=== PATIENT | male | born 1995 | race Caucasian/White ===

== ENCOUNTER 2018-01-18 01:01 | Inpatient (IN) | payer OTHER ==
[~2018-01-18] VITALS: Ht 175.3 cm; Wt 66.2 kg
[~2018-01-18 01:01] MED LIST: PRED20 PO; Z.0.NO CURRENT MEDS
[2018-01-18 01:10] VITALS: BP 131/99; PULSE 123; RESP 18; TEMP 98.7; O2SAT 99
[2018-01-18] MEDS ORDERED: LORazepam 2 MG/ML VIAL IM ONE (01:45)
[2018-01-18] MEDS ORDERED: HALOPERIDOL LACTATE 5 MG/ML AMP IM ONE (01:45)
[2018-01-18] MEDS ORDERED: diphenhydrAMINE HCL 50 MG/ML VIAL IM ONE (01:45)
--- NOTE | 2018-01-18 01:59 | PD ---
HPI Chief Complaint: Psychiatric Symptoms Time Seen by Provider: 01:43 Travel History International Travel<30 days: No Contact w/Intl Traveler<30days: No Traveled to known affect area: No History of Present Illness HPI 22-year-old male presents emergency department under Reyna act for psychiatric evaluation. Patient does not offer any history. He denies pain. He keeps yelling that he loves us and then he becomes very agitated and angry. He has very explosive behavior here in the emergency department. Like I said he is otherwise a very poor historian offers no history to what occurred today and why he is here. He denies illicit drug use. He has no documented psychiatric history here PFSH Past Medical History ADHD: Yes Asthma: No Bipolar Disorder: No Anxiety: No Diabetes: No Hypertension: No Seizures: No Past Surgical History Surgical History: No Previous Surgery Social History Alcohol Use: No Tobacco Use: No Substance Use: Yes Allergies-Medications (Allergen,Severity, Reaction): Coded Allergies: No Known Allergies (Verified Adverse Reaction, Unknown, 01/18/18) Reported Meds & Prescriptions Reported Meds & Active Scripts Active No Active Prescriptions or Reported Medications Review of Systems ROS Limitations: Psychotic Physical Exam Exam Limitations: Psychotic Narrative GENERAL: Well-nourished male patient, with bizarre affect, labile moods, combative, with explosive behavior SKIN: Focused skin assessment warm/dry. HEAD: Atraumatic. Normocephalic. EYES: Pupils equal and round. No scleral icterus. No injection or drainage. ENT: No nasal bleeding or discharge. Mucous membranes pink and moist. NECK: Trachea midline. No JVD. CARDIOVASCULAR: Tachycardic rate and rhythm. No murmur appreciated. RESPIRATORY: No accessory muscle use. Clear to auscultation. Breath sounds equal bilaterally. GASTROINTESTINAL: Abdomen soft, non-tender, nondistended. Hepatic and splenic margins not palpable. MUSCULOSKELETAL: No obvious deformities. No clubbing. No cyanosis. No edema. NEUROLOGICAL: Awake and alert. No obvious cranial nerve deficits. Motor grossly within normal limits. Clear but bizarre speech. Data Data Last Documented VS Vital Signs Date Time Temp Pulse Resp B/P (MAP) Pulse Ox O2 Delivery O2 Flow Rate FiO2 01/18/18 01:10 98.7 123 18 131/99 (110) 99 Orders Orders Complete Blood Count With Diff (01/18/18 01:17) Comprehensive Metabolic Panel (01/18/18 01:17) Thyroid Stimulating Hormone (01/18/18 01:17) Psych Screen (01/18/18 01:17) Drug Screen, Random Urine (01/18/18 01:17) Alcohol (Ethanol) (01/18/18 01:17) Salicylates (Aspirin) (01/18/18 01:17) Tylenol (Acetaminophen) (01/18/18 01:17) Restraints Violent (01/18/18 01:44) Haloperidol Inj (Haldol Inj) (01/18/18 01:45) Lorazepam Inj (Ativan Inj) (01/18/18 01:45) Diphenhydramine Inj (Benadryl Inj) (01/18/18 01:45) Labs Laboratory Tests Test 01/18/18 01:15 White Blood Count 8.2 TH/MM3 Red Blood Count 4.90 MIL/MM3 Hemoglobin 15.2 GM/DL Hematocrit 43.3 % Mean Corpuscular Volume 88.3 FL Mean Corpuscular Hemoglobin 31.1 PG Mean Corpuscular Hemoglobin Concent 35.2 % Red Cell Distribution Width 12.5 % Platelet Count 319 TH/MM3 Mean Platelet Volume 7.8 FL Neutrophils (%) (Auto) 72.9 % Lymphocytes (%) (Auto) 19.5 % Monocytes (%) (Auto) 7.1 % Eosinophils (%) (Auto) 0.1 % Basophils (%) (Auto) 0.4 % Neutrophils # (Auto) 6.0 TH/MM3 Lymphocytes # (Auto) 1.6 TH/MM3 Monocytes # (Auto) 0.6 TH/MM3 Eosinophils # (Auto) 0.0 TH/MM3 Basophils # (Auto) 0.0 TH/MM3 CBC Comment DIFF FINAL Differential Comment Blood Urea Nitrogen 15 MG/DL Creatinine 1.17 MG/DL Random Glucose 115 MG/DL Total Protein 8.2 GM/DL Albumin 4.7 GM/DL Calcium Level 8.7 MG/DL Alkaline Phosphatase 68 U/L Aspartate Amino Transf (AST/SGOT) 22 U/L Alanine Aminotransferase (ALT/SGPT) 25 U/L Total Bilirubin 0.8 MG/DL Sodium Level 134 MEQ/L Potassium Level 3.0 MEQ/L Chloride Level 99 MEQ/L Carbon Dioxide Level 22.2 MEQ/L Anion Gap 13 MEQ/L Estimat Glomerular Filtration Rate 79 ML/MIN Thyroid Stimulating Hormone 3rd Gen 1.660 uIU/ML Salicylates Level LESS THAN 1.7 MG/DL Acetaminophen Level LESS THAN 2.0 MCG/ML Ethyl Alcohol Level 101 MG/DL MDM Medical Decision Making Medical Screen Exam Complete: Yes Emergency Medical Condition: Yes Medical Record Reviewed: Yes Differential Diagnosis Mood disorder versus personality disorder versus adjustment reaction disorder versus substance abuse Narrative Course 22-year-old male presents emergency department under Reyna act for psychiatric evaluation. Patient is combative myself and staff. He is a risk to himself as well as staff. We are not able to talk him down. Patiently placed in violent restraints. [id number] exam completed at 2 AM. Patient demonstrates the need for violent restraints, demonstrating a risk of harming himself and others. Restraints are noted in place. Distal extremities remain neurovascularly intact. Patient's potassium is 3.0. This will be repleted in the morning when he wakes up. Alcohol is 101. Patient is medically cleared to undergo psychiatric screening for further evaluation and disposition. Mental health screening discussed with the patient. Psychiatric screen ordered. Diagnosis Primary Impression: Acute psychosis Additional Impression: Hypokalemia Scripts No Active Prescriptions or Reported Meds Condition: Stable JonMary Ann DOWNEY Jan 18, 2018 01:59
[2018-01-18 02:25] LABS: BASOPHIL % 0.4 % (0.0-2.0); EOSINOPHIL % 0.1 % (0.0-4.0); HEMATOCRIT 43.3 % (39.0-51.0); HEMOGLOBIN 15.2 GM/DL (13.0-17.0); LYMPH % 19.5 % (9.0-44.0); LYMPHOCYTE # 1.6 TH/MM3 (1.0-4.8); MEAN CELL VOLUME 88.3 FL (80.0-100.0); MEAN CORPUSCULAR HEMOGLOBIN 31.1 PG (27.0-34.0); MEAN CORPUSCULAR HGB CONC 35.2 % (32.0-36.0); MEAN PLATELET VOLUME 7.8 FL (7.0-11.0); MONO % 7.1 % (0.0-8.0); MONOCYTE # 0.6 TH/MM3 (0-0.9); NEUT % 72.9 % (16.0-70.0); PLATELET COUNT 319 TH/MM3 (150-450); RED CELL DISTRIBUTION WIDTH 12.5 % (11.6-17.2); WHITE BLOOD COUNT 8.2 TH/MM3 (4.0-11.0)
[2018-01-18 02:41] LABS: ALBUMIN 4.7 GM/DL (3.4-5.0); ALT (GPT) 25 U/L (12-78); AST (GOT) 22 U/L (15-37); BICARBONATE 22.2 MEQ/L (21.0-32.0); BLOOD UREA NITROGEN 15 MG/DL (7-18); CALCIUM 8.7 MG/DL (8.5-10.1); CHLORIDE 99 MEQ/L (98-107); CREATININE 1.17 MG/DL (0.60-1.30); GLOMERULAR FILTRATION RATE 79 ML/MIN (>89); GLUCOSE,RANDOM 115 MG/DL (74-106); SODIUM (NA) 134 MEQ/L (136-145)
[2018-01-18 02:51] LABS: ALKALINE PHOSPHATASE 68 U/L (45-117); TOTAL BILIRUBIN ADULT 0.8 MG/DL (0.2-1.0); TOTAL PROTEIN 8.2 GM/DL (6.4-8.2)
[2018-01-18 03:03] LABS: ACETAMINOPHEN LESS THAN 2.0 MCG/ML (10.0-30.0)
[2018-01-18] MEDS ORDERED: POTASSIUM CHLORIDE 25 MEQ EFFERVESCENT TAB PO ONE (04:30)
[2018-01-18 05:37] VITALS: BP 141/88; PULSE 98; RESP 18; O2SAT 100
[2018-01-18 08:54] VITALS: BP 138/82; PULSE 89; RESP 18; O2SAT 99
[2018-01-18] MEDS ORDERED: FLUMAZENIL 0.5 MG/5 ML VIAL IV PUSH PRN (09:00)
[2018-01-18] MEDS: NICOTINE 21 MG/24 HR PATCH T-DERMAL SCH (09:00)
[2018-01-18] MEDS ORDERED: LORazepam 2 MG TAB PO PRN (09:00)
[2018-01-18] MEDS ORDERED: LORazepam 0.5 MG TAB PO PRN (09:00)
[2018-01-18] MEDS ORDERED: ALUMINUM/MAGNESIUM/SIMETH 30 ML CUP PO PRN (09:00)
[2018-01-18] MEDS ORDERED: ACETAMINOPHEN 325 MG TAB PO PRN (09:00)
[2018-01-18] MEDS ORDERED: LORazepam 2 MG/ML VIAL IV PUSH PRN ×4 (09:00)
[2018-01-18] MEDS ORDERED: LORazepam 1 MG TAB PO PRN ×2 (09:00)
[2018-01-18] MEDS ORDERED: LORazepam 2 MG/ML VIAL IM PRN ×2 (09:00)
[2018-01-18] MEDS ORDERED: MAGNESIUM HYDROXIDE SUSP 30 ML CUP PO PRN (09:30)
[2018-01-18] MEDS: ARIPiprazole 5 MG TAB PO SCH (09:30)
[2018-01-18 10:42] VITALS: BP 125/80; PULSE 83; RESP 17; O2SAT 99
[2018-01-18 11:55] VITALS: BP 126/70; PULSE 89; RESP 18; TEMP 98.5; O2SAT 99
--- NOTE | 2018-01-18 12:03 | HHI.HP ---
Provisional Diagnosis Admission Date Jan 18, 2018 at 08:59 [place] I. Unspecified psychosis, r/o substance-induced psychosis, r/o schizophrenia, r/o schizoaffective disorder, r/o bipolar [place] II. Deferred [place] III. Deferred Certification of Person's Competence To Provide Express and Informed Consent I have personally examined Leo Zabala , a person being served at [facility] on, Jan 18, 2018 11:46. Express and informed consent means consent voluntarily given in writing, by a competent person, after sufficient explanation and disclosure of the subject matter involved to enable the person to make a knowing and willful decision without any element of force, fraud, deceit, duress, or other form of constraint or coercion. This person is 18 years of age or older, is not now known to be incompetent to consent to treatment with a guardian advocate, and does not have a health care surrogate or proxy currently making medical treatment decisions. I have found this person to be one of the following: [] Competent to provide express and informed consent, as defined above, for voluntary admission to this facility and is competent to provide express and informed consent for treatment. He/she has the consistent capacity to make well reasoned, willful, and knowing decisions concerning his or her medical or mental health treatment. The person fully and consistently understands the purpose of the admission for examination/placement and is fully capable of personally exercising all rights assured [place] Incompetent to provide express and informed consent to voluntary admission, and this is incompetent to provide express and informed consent to treatment. The person must be transferred to involuntary status and a petition for a guardian advocate filed with the Circuit Court. [x] Refusing to provide express and informed consent to voluntary admission but is competent to provide express and informed consent for treatment. The person must be discharged or transferred to involuntary status. Form shall be completed within 24 hours of a person's arrival at the receiving facility and filed in the clinical record of each person: 1. Admitted on a voluntary basis 2. Permitted to provide express and informed consent to his/her own treatment 3. Allowed to transfer from involuntary to voluntary status 4. Prior to permitting a person to consent to his or her own treatment after having been previously found incompetent to consent to treatment. History of Present Illness Capacity: Lacks Capacity HPI The patient is 22-year-old [place] man, domiciled with his father in [place] [place], employed, single, with psychiatric history of cannabis and alcohol use disorder , no previous psychiatric hospitalizations, no previous suicide attempts, he has 2 uncle diagnosed with schizophrenia and his mother side, no significant medical history, who presents emergency department under Reyna act for psychiatric evaluation. Patient does not offer any history. He denies pain. He keeps yelling that he loves us and then he becomes very agitated and angry. He has very explosive behavior here in the emergency department. Like I said he is otherwise a very poor historian offers no history to what occurred today and why he is here. He denies illicit drug use. He has no documented psychiatric history here. His BAL initially was 101. Toxicology was not performed. I am reordering toxicology right now. On psychiatric evaluation today the patient still sedated from previous agitation in the ER. He is unable to offer any meaningful information for the psychiatric assessment at this moment. Nurse charge states that the patient was saying that he was hearing voices, talking to himself, making accusations to the staff and no making much sense. I spoke with his father Cedric Zabala, , clarified that the patient does not have any previous psychiatric history. But , he said to the patient just the whole day was acting very bizarre, no making much sense, talking to himself, very disorganized. He says that he has noted a change in patient behavior and emotions in the last week, but he thought that the patient most probably was depressed because his grandmother recently . Yesterday, for the first time, he thought that maybe the patient is becoming a schizophrenia-like 2 of his uncles. Review of Systems Constitutional: DENIES: Diaphoretic episodes, Fatigue, Fever, Weight gain, Weight loss, Chills, Dizziness, Change in appetite, Night Sweats Endocrine: DENIES: Heat/cold intolerance, Polydipsia, Polyuria, Polyphagia Eyes: DENIES: Blurred vision, Diplopia, Eye inflammation, Eye pain, Vision loss , Photosensitivity, Double Vision Ears, nose, mouth, throat: DENIES: Tinnitus, Hearing loss, Vertigo, Nasal discharge, Oral lesions, Throat pain, Hoarseness, Ear Pain, Running Nose, Epistaxis, Sinus Pain, Toothache, Odynophagia Respiratory: DENIES: Apneas, Cough, Snoring, Wheezing, Hemoptysis, Sputum production, Shortness of breath Cardiovascular: DENIES: Chest pain, Palpitations, Syncope, Dyspnea on Exertion , PND, Lower Extremity Edema, Orthopnea, Claudication Gastrointestinal: DENIES: Abdominal pain, Black stools, Bloody stools, Constipation, Diarrhea, Nausea, Vomiting, Difficulty Swallowing, Anorexia Genitourinary: DENIES: Sexual dysfunction, Urinary frequency, Urinary incontinence, Urgency, Hematuria, Dysuria, Nocturia, Penile Discharge, Testicular Pain, Testicular Swelling Musculoskeletal: DENIES: Joint pain, Muscle aches, Stiffness, Joint Swelling, Back pain, Neck pain Integumentary: DENIES: Abnormal pigmentation, Nail changes, Pruritus, Rash Hematologic/lymphatic: DENIES: Bruising, Lymphadenopathy Immunologic/allergic: DENIES: Eczema, Urticaria Neurologic: DENIES: Abnormal gait, Headache, Localized weakness, Paresthesias, Seizures, Speech Problems, Tremor, Poor Balance Psychiatric: COMPLAINS OF: Hallucinations, Delusions, DENIES: Anxiety, Confusion, Mood changes, Depression, Agitation, Suicidal Ideation, Homicidal Ideation Past Psych History Violence risk - self (6 mos) Increased Substance Abuse History Drugs/Alcohol past 12 months His father reported that he uses alcohol and cannabis Past Family Social History Coded Allergies: No Known Allergies (Verified Allergy, Unknown, 01/18/18) Discontinued Reported Medications Miscellaneous (No Current Meds) Misc 09/17/10 Discontinued Scripts Prednisone (Deltasone) 20 Mg Tab, 60 MG PO DAILY for 8 Days Prov:DELMA MELCHOR M.D. 09/17/10 Current Medications Medications (Trade) Dose Ordered Sig/Maricarmen Route Start Time Stop Time Status Last Admin (Ativan) 1 mg Q6H PRN PO 01/18/18 09:00 (Ativan Inj) 1 mg Q6H PRN IM 01/18/18 09:00 (Tylenol) 650 mg Q4H PRN PO 01/18/18 09:00 (Milk Of Magnesia Liq) 30 ml DAILY PRN PO 01/18/18 09:30 (Mag-Al Plus Susp Liq) 30 ml Q6H PRN PO 01/18/18 09:00 (Habitrol 21 Mg Patch.24 Hr) 1 patch DAILY T-DERMAL 01/18/18 09:00 (Romazicon Inj) 0.2 mg Q1M PRN IV PUSH 01/18/18 09:00 (Ativan) 1 mg Q4H PRN PO 01/18/18 09:00 (Ativan Inj) 1 mg Q4H PRN IV PUSH 01/18/18 09:00 (Ativan) 2 mg Q2H PRN PO 01/18/18 09:00 (Ativan Inj) 2 mg Q2H PRN IV PUSH 01/18/18 09:00 (Ativan Inj) 2 mg Q1H PRN IV PUSH 01/18/18 09:00 (Ativan Inj) 2 mg Q15M PRN IV PUSH 01/18/18 09:00 (Abilify) 5 mg DAILY PO 01/18/18 09:30 01/18/18 09:30 Miscellaneous Information 1 DAILY T-DERMAL 01/19/18 09:00 Family Psych History He has 2 uncles with schizophrenia Social History Patient was born and raised in [facility], he lives in [place] with his father, he is employed in construction, he is single, his highest level of education is high school Patient's Strengths (min. 2) Family support Physical Exam Patient is too sedated at this moment performed a physical exam Vital Signs Vital Signs Date Time Temp Pulse Resp B/P (MAP) Pulse Ox O2 Delivery O2 Flow Rate FiO2 01/18/18 10:42 83 17 125/80 (95) 99 Room Air 01/18/18 01:10 98.7 Lab Results Test 01/18/18 01:15 White Blood Count 8.2 TH/MM3 Red Blood Count 4.90 MIL/MM3 Hemoglobin 15.2 GM/DL Hematocrit 43.3 % Mean Corpuscular Volume 88.3 FL Mean Corpuscular Hemoglobin 31.1 PG Mean Corpuscular Hemoglobin Concent 35.2 % Red Cell Distribution Width 12.5 % Platelet Count 319 TH/MM3 Mean Platelet Volume 7.8 FL Neutrophils (%) (Auto) 72.9 % Lymphocytes (%) (Auto) 19.5 % Monocytes (%) (Auto) 7.1 % Eosinophils (%) (Auto) 0.1 % Basophils (%) (Auto) 0.4 % Neutrophils # (Auto) 6.0 TH/MM3 Lymphocytes # (Auto) 1.6 TH/MM3 Monocytes # (Auto) 0.6 TH/MM3 Eosinophils # (Auto) 0.0 TH/MM3 Basophils # (Auto) 0.0 TH/MM3 CBC Comment DIFF FINAL Differential Comment Blood Urea Nitrogen 15 MG/DL Creatinine 1.17 MG/DL Random Glucose 115 MG/DL Total Protein 8.2 GM/DL Albumin 4.7 GM/DL Calcium Level 8.7 MG/DL Alkaline Phosphatase 68 U/L Aspartate Amino Transf (AST/SGOT) 22 U/L Alanine Aminotransferase (ALT/SGPT) 25 U/L Total Bilirubin 0.8 MG/DL Sodium Level 134 MEQ/L Potassium Level 3.0 MEQ/L Chloride Level 99 MEQ/L Carbon Dioxide Level 22.2 MEQ/L Anion Gap 13 MEQ/L Estimat Glomerular Filtration Rate 79 ML/MIN Thyroid Stimulating Hormone 3rd Gen 1.660 uIU/ML Salicylates Level LESS THAN 1.7 MG/DL Acetaminophen Level LESS THAN 2.0 MCG/ML Ethyl Alcohol Level 101 MG/DL Mental Status Examination Appearance: Dirty, Disheveled Consciousness: Clouded Insight: Poor Judgment: Poor (Limited due to the level of sedation) Assessment & Plan Problem List: (1) Unspecified psychosis ICD Codes: F29 - Unspecified psychosis not due to a substance or known physiological condition Assessment & Plan: On psychiatric evaluation today the patient is too sedated to cooperate and to provide significant information for the psychiatric assessment, however we have the information from the Reyna act and ER staff in which the patient has been described as very agitated, disorganized, paranoid, combative. Collateral information from his father was also contacted, he explains that the patient has been acting bizarre in the last weeks, with changes in emotions and behavior, but at the same time he clarifies that the patient uses alcohol and cannabis, but he does not seem that this behavior is related with these 2 drugs. The patient has a strong biological component of psychosis, he has 2 uncles with schizophrenia. His arrival to the ER his BAL was 101, no toxicology was done. I will order toxicology now. I will admit the patient in psychiatry for observation of mood and behavior, stabilization of psychosis, and safety. Psychosis could be secondary to substances, but first break of schizophrenia should be carefully ruled out. I will start Abilify 5 mg daily, I have discussed with his father the importance of this medication. Patient will be transferred to 2700. Assessment & Plan Estimated LOS: days Kei Jackson MD Jan 18, 2018 12:03
[2018-01-19 05:46] VITALS: BP 118/66; PULSE 89; RESP 18; TEMP 98; O2SAT 100
[2018-01-19] MEDS: ARIPiprazole 5 MG TAB PO SCH ×3 (08:51→11:00)
[2018-01-19] MEDS: NICOTINE 21 MG/24 HR PATCH T-DERMAL SCH ×2 (08:52→08:57)
[2018-01-19] MEDS: REMOVE OLD PATCH T-DERMAL SCH ×2 (08:53→08:56)
[2018-01-19 10:06] LABS: BICARBONATE 26.1 MEQ/L (21.0-32.0); BLOOD UREA NITROGEN 14 MG/DL (7-18); CALCIUM 9.3 MG/DL (8.5-10.1); CHLORIDE 104 MEQ/L (98-107); CHOLESTEROL 143 MG/DL (120-200); CHOLESTEROL/ HDL RATIO 1.91 RATIO; CREATININE 1.13 MG/DL (0.60-1.30); GLOMERULAR FILTRATION RATE 82 ML/MIN (>89); GLUCOSE,RANDOM 118 MG/DL (74-106); HDL CHOLESTEROL 74.7 MG/DL (40.0-60.0); LDL CHOLESTEROL 59 MG/DL (0-99); SODIUM (NA) 137 MEQ/L (136-145); TRIGLYCERIDES 48 MG/DL (42-150)
[2018-01-19 16:46] VITALS: BP 119/73; PULSE 74; RESP 18; TEMP 98.6; O2SAT 100
--- NOTE | 2018-01-19 20:21 | PD.PSY.CON ---
Provisional Diagnosis Admission Date Jan 18, 2018 at 08:59 [place] I. Unspecified psychosis, r/o substance-induced psychosis, r/o schizophrenia, r/o schizoaffective disorder, r/o bipolar [place] II. Deferred [place] III. Deferred History of Present Illness Service Psychiatry Consult Requested By Dr. Jackson Reason for Consult Second opinion Primary Care Physician Unknown HPI The patient is 22-year-old [place] man, domiciled with his father in [facility], employed, single, with psychiatric history of cannabis and alcohol use disorder , no previous psychiatric hospitalizations, no previous suicide attempts, he has 2 uncle diagnosed with schizophrenia and his mother side, no significant medical history, who presents emergency department under Reyna act for psychiatric evaluation. Patient does not offer any history. He denies pain. He keeps yelling that he loves us and then he becomes very agitated and angry. He has very explosive behavior here in the emergency department. Like I said he is otherwise a very poor historian offers no history to what occurred today and why he is here. He denies illicit drug use. He has no documented psychiatric history here. His BAL initially was 101. Toxicology was not performed. I am reordering toxicology right now. On psychiatric evaluation today the patient still sedated from previous agitation in the ER. He is unable to offer any meaningful information for the psychiatric assessment at this moment. Nurse charge states that the patient was saying that he was hearing voices, talking to himself, making accusations to the staff and no making much sense. I spoke with his father Cedric Zabala, , clarified that the patient does not have any previous psychiatric history. But , he said to the patient just the whole day was acting very bizarre, no making much sense, talking to himself, very disorganized. He says that he has noted a change in patient behavior and emotions in the last week, but he thought that the patient most probably was depressed because his grandmother recently . Yesterday, for the first time, he thought that maybe the patient is becoming a schizophrenia-like 2 of his uncles. 01/19/18 -second opinion Unspecified psychosis, marijuana and alcohol use disorder, no previous psychiatric admissions, no previous suicide attempt or self-injurious behavior was brought to the ER under Reyna act activity noted to be disorganized, talking to self and agitated. Patient was found participating group activity today noted B, cooperative. Patient states he was "hanging out with some friends" and had got into an argument physical education and was noted to be saying nonsensical comments and was taken to the hospital for evaluation. She states recently having had adequate sleep, eating and drinking well, no difficulty with bowel movement, denying any auditory or visual hallucinations recently denying any paranoid ideations today. Patient states that he spoke with his father and sister over the phone had visited by his family recently which went "good". Patient did admit that he would talk to himself before coming to the hospital was feeling very stressed and other discussion about importance of treatment medications and had agreed to continue treatment at this time. Collateral contact: Father, Cedric Zabala, who had come to the hospital to speak with policy writer sales met with patient's father who had recanted events that brought patient to the hospital and stated the patient was making "illogical statements" and acting strange. He mentions that patient had recently been by himself for 2 weeks when he had gone to [place] to visit as his mother had recently and patient did not want to go with him. Discussion over treatment plan and possible discharge was reviewed with patient' s father which he acknowledged. Past Family Social History Coded Allergies: No Known Allergies (Verified Allergy, Unknown, 01/18/18) Discontinued Reported Medications Miscellaneous (No Current Meds) [facility] 09/17/10 Discontinued Scripts Prednisone (Deltasone) 20 Mg Tab, 60 MG PO DAILY for 8 Days Prov:DELMA MELCHOR M.D. 09/17/10 Current Medications Medications (Trade) Dose Ordered Sig/Maricarmen Route Start Time Stop Time Status Last Admin (Ativan) 1 mg Q6H PRN PO 01/18/18 09:00 (Ativan Inj) 1 mg Q6H PRN IM 01/18/18 09:00 (Tylenol) 650 mg Q4H PRN PO 01/18/18 09:00 (Milk Of Magnesia Liq) 30 ml DAILY PRN PO 01/18/18 09:30 (Mag-Al Plus Susp Liq) 30 ml Q6H PRN PO 01/18/18 09:00 (Habitrol 21 Mg Patch.24 Hr) 1 patch DAILY T-DERMAL 01/18/18 09:00 (Romazicon Inj) 0.2 mg Q1M PRN IV PUSH 01/18/18 09:00 (Ativan) 1 mg Q4H PRN PO 01/18/18 09:00 (Ativan Inj) 1 mg Q4H PRN IV PUSH 01/18/18 09:00 (Ativan) 2 mg Q2H PRN PO 01/18/18 09:00 (Ativan Inj) 2 mg Q2H PRN IV PUSH 01/18/18 09:00 (Ativan Inj) 2 mg Q1H PRN IV PUSH 01/18/18 09:00 (Ativan Inj) 2 mg Q15M PRN IV PUSH 01/18/18 09:00 (Abilify) 5 mg DAILY PO 01/18/18 09:30 01/19/18 11:00 Miscellaneous Information 1 DAILY T-DERMAL 01/19/18 09:00 Patient's Strengths (min. 2) Family support Physical Exam Vital Signs Vital Signs Date Time Temp Pulse Resp B/P (MAP) Pulse Ox O2 Delivery O2 Flow Rate FiO2 01/19/18 16:46 98.6 74 18 119/73 (88) 100 01/18/18 10:42 Room Air Lab Results Test 01/19/18 05:40 01/19/18 09:15 Urine Opiates Screen NEG Urine Barbiturates Screen NEG Urine Amphetamines Screen NEG Urine Benzodiazepines Screen NEG Urine Cocaine Screen NEG Urine Cannabinoids Screen POS Blood Urea Nitrogen 14 MG/DL Creatinine 1.13 MG/DL Random Glucose 118 MG/DL Calcium Level 9.3 MG/DL Sodium Level 137 MEQ/L Potassium Level 4.1 MEQ/L Chloride Level 104 MEQ/L Carbon Dioxide Level 26.1 MEQ/L Anion Gap 7 MEQ/L Estimat Glomerular Filtration Rate 82 ML/MIN Triglycerides Level 48 MG/DL Cholesterol Level 143 MG/DL LDL Cholesterol 59 MG/DL HDL Cholesterol 74.7 MG/DL Cholesterol/HDL Ratio 1.91 RATIO Mental Status Examination Appearance: Appropriate Consciousness: Alert Orientation: Person, Place Motor Activity: Normal gait Speech: Unremarkable Language: Adequate Fund of Knowledge: Inadequate Attention and Concentration: Adequate Memory: Impaired Mood: Appropriate Affect: Other (Restricted) Thought Process & Associations: Disorganized (Less so today) Thought Content: Hallucinations Hallucination Type: Auditory Delusion Type: Paranoid Suicidal Ideation: No Suicidal Plan: No Suicidal Intention: No Homicidal Ideation: No Homicidal Plan: No Homicidal Intention: No Insight: Fair Judgment: Impulsive Assessment & Plan Problem List: (1) Unspecified psychosis ICD Codes: F29 - Unspecified psychosis not due to a substance or known physiological condition Assessment & Plan I have seen and examined this patient, reviewed the documentation, discussed personally with Dr. Jackson, and I agree and concur with his assessment and plan. Patient at this time continues with recent auditory hallucinations but states that is improving. Patient refused medications this morning but agreed to comply after interview today. We will continue current treatment, continue to monitor mood and behavior. Discharge planning in progress. Elvin Butcher MD Jan 19, 2018 20:21
[2018-01-19 22:34] LABS: HEMOGLOBIN A1C 5.2 % (4.3-6.0)
[2018-01-20 06:27] VITALS: BP 120/69; PULSE 97; RESP 18; TEMP 97.8; O2SAT 98
[2018-01-20] MEDS: NICOTINE 21 MG/24 HR PATCH T-DERMAL SCH (08:50)
[2018-01-20] MEDS: REMOVE OLD PATCH T-DERMAL SCH (08:50)
[2018-01-20] MEDS: ARIPiprazole 5 MG TAB PO SCH (09:00)
--- NOTE | 2018-01-20 12:42 | HHI.PYPN ---
Subjective Remarks Patient seen for follow, chart reviewed. Discussion nursing staff reported the patient had refused medications yesterday morning but data take his medications later in the afternoon. Patient had been visited by family this evening. Patient was found eating breakfast this morning are to become cooperative. Patient states that he had been feeling "pretty good" had visited by his family which went well. Patient states feeling well medication with no adverse drug reactions noted. Patient states that his mood has been good, calm denying any perceptional services at this time. Patient was counseled on importance of adherence to treatment to avoid recurrence of subsequent psychotic episodes which he acknowledged. Review of Systems Except as stated in HPI: all other systems reviewed are Neg Mental Status Examination Appearance: Appropriate Consciousness: Alert Orientation: Person, Place Motor Activity: Normal gait Speech: Unremarkable Language: Adequate Fund of Knowledge: Inadequate Attention and Concentration: Adequate Memory: Impaired Mood: Appropriate Affect: Other (Restricted) Thought Process & Associations: Disorganized (Less so today) Thought Content: Hallucinations Hallucination Type: Auditory (Denies today) Delusion Type: Paranoid (Less so today) Suicidal Ideation: No Suicidal Plan: No Suicidal Intention: No Homicidal Ideation: No Homicidal Plan: No Homicidal Intention: No Insight: Fair Judgment: Impulsive Results Vitals/IOs Vital Signs Date Time Temp Pulse Resp B/P (MAP) Pulse Ox O2 Delivery O2 Flow Rate FiO2 01/20/18 06:27 97.8 97 18 120/69 (86) 98 01/18/18 10:42 Room Air Assessment & Plan Problem List: (1) Unspecified psychosis ICD Codes: F29 - Unspecified psychosis not due to a substance or known physiological condition Assessment & Plan Patient at this time noted to have improvement in more organized thought process , cessation of perceptional disturbances, now agreeable to comply with treatment. We will continue current treatment for now. Will continue monitor with behavior. Patient remains consistent with improvement patient likely for discharge tomorrow morning back to family. Continue to monitor mood and behavior. Discharge planning in progress. Justification for Cont. Inpt. At risk for further decompensation if at lower level of care Elvin Butcher MD Jan 20, 2018 12:42
[2018-01-20 17:24] VITALS: BP 111/58; PULSE 80; RESP 17; TEMP 98; O2SAT 97
[2018-01-21 05:46] VITALS: BP 118/74; PULSE 18; RESP 18; TEMP 98.3; O2SAT 99
[2018-01-21] MEDS ORDERED: ARIP1TAB11 PO (07:44)
--- NOTE | 2018-01-21 07:45 | HHI.DS ---
Psychiatry Discharge Summary Inpatient Psychiatric care?: Yes Advance Directive: No Reason Not Provided: refused Mental Health AdvanceDirective: No Health Care Proxy: No Admission Admission Date Jan 18, 2018 at 08:59 Admission Diagnosis: (1) Unspecified psychosis ICD Code: F29 - Unspecified psychosis not due to a substance or known physiological condition Brief History The patient is 22-year-old [place] man, domiciled with his father in [facility], employed, single, with psychiatric history of cannabis and alcohol use disorder , no previous psychiatric hospitalizations, no previous suicide attempts, he has 2 uncle diagnosed with schizophrenia and his mother side, no significant medical history, who presents emergency department under Reyna act for psychiatric evaluation. Patient does not offer any history. He denies pain. He keeps yelling that he loves us and then he becomes very agitated and angry. He has very explosive behavior here in the emergency department. Like I said he is otherwise a very poor historian offers no history to what occurred today and why he is here. He denies illicit drug use. He has no documented psychiatric history here. His BAL initially was 101. Toxicology was not performed. I am reordering toxicology right now. On psychiatric evaluation today the patient still sedated from previous agitation in the ER. He is unable to offer any meaningful information for the psychiatric assessment at this moment. Nurse charge states that the patient was saying that he was hearing voices, talking to himself, making accusations to the staff and no making much sense. I spoke with his father Cedric Zabala, , clarified that the patient does not have any previous psychiatric history. But , he said to the patient just the whole day was acting very bizarre, no making much sense, talking to himself, very disorganized. He says that he has noted a change in patient behavior and emotions in the last week, but he thought that the patient most probably was depressed because his grandmother recently . Yesterday, for the first time, he thought that maybe the patient is becoming a schizophrenia-like 2 of his uncles. 01/19/18 -second opinion Unspecified psychosis, marijuana and alcohol use disorder, no previous psychiatric admissions, no previous suicide attempt or self-injurious behavior was brought to the ER under Reyna act activity noted to be disorganized, talking to self and agitated. Patient was found participating group activity today noted B, cooperative. Patient states he was "hanging out with some friends" and had got into an argument physical education and was noted to be saying nonsensical comments and was taken to the hospital for evaluation. She states recently having had adequate sleep, eating and drinking well, no difficulty with bowel movement, denying any auditory or visual hallucinations recently denying any paranoid ideations today. Patient states that he spoke with his father and sister over the phone had visited by his family recently which went "good". Patient did admit that he would talk to himself before coming to the hospital was feeling very stressed and other discussion about importance of treatment medications and had agreed to continue treatment at this time. Collateral contact: Father, Cedric Zabala, who had come to the hospital to speak with video games storywriter met with patient's father who had recanted events that brought patient to the hospital and stated the patient was making "illogical statements" and acting strange. He mentions that patient had recently been by himself for 2 weeks when he had gone to [place] to visit as his mother had recently and patient did not want to go with him. Discussion over treatment plan and possible discharge was reviewed with patient' s father which he acknowledged. Tobacco Use In Past 30 Days: 4 or Less Cigarettes/Day Alcohol Use: 2-4 Times Per Month Hospital Course The patient is 22-year-old [place] man, domiciled with his father in [facility], employed, single, with psychiatric history of unspecified psychosis, marijuana and alcohol use disorder, no previous psychiatric admissions, no previous suicide attempt or self-injurious behavior was brought to the ER under Reyna act activity noted to be disorganized, talking to self and agitated which patient was admitted for further evaluation and management. Patient was started on aripiprazole 5mg PO daily, which he tolerated well with no adverse drug reactions. Patient continue with treatment and was noted to have improvement of mood, was noted to be cooperative with staff as well as improvement in personal hygiene. Patient was noted to have improvement of insight and judgment. Patient was adherent to medication regimen and recommendations as per primary medical team. Upon discharge patient stated feeling good, stated feeling okay with returning back to his father's residence, was calm and cooperative with staff. He agreed to continuing recommendations, treatment and attend outpatient follow up appointments for continuity of care. Patient denies SI, HI, AVH or delusions. Supportive psychotherapy provided and counseled on abstinence from substance use. Patient advised to call 911 or return back to the ED in case of any emergency. Patient agrees with plan. Results Blood Pressure 118 / 74 Vital Signs Date Time Temp Pulse Resp B/P (MAP) Pulse Ox O2 Delivery O2 Flow Rate FiO2 01/21/18 05:46 98.3 118/74 (89) 99 01/18/18 10:42 Room Air Laboratory Tests Test 01/19/18 05:40 01/19/18 09:15 Urine Cannabinoids Screen POS (NEG) Random Glucose 118 MG/DL (74-106) Estimat Glomerular Filtration Rate 82 ML/MIN (>89) HDL Cholesterol 74.7 MG/DL (40.0-60.0) Laboratory Results Test 01/19/18 09:15 Cholesterol Level 143 MG/DL (120-200) HDL Cholesterol 74.7 MG/DL (40.0-60.0) Hemoglobin A1c 5.2 % (4.3-6.0) LDL Cholesterol 59 MG/DL (0-99) Triglycerides Level 48 MG/DL (42-150) Summary of Procedures none Pending results at discharge: No Medications # of Antipsychotic meds at D/C: 1 Approp Antipsych med options 1 - Minimum of three failed multiple trials of monotherapy. 2 - Documented plan to taper to monotherapy due to previous use of multiple meds OR cross-taper in progress at D/C. 3 - Documentation of augmentation of Clozapine. 4 - Justification other than those listed in allowable values 1-3, document here : Discharge Discharge Date: Jan 21, 2018 Discharge Diagnosis: (1) Unspecified psychosis ICD Code: F29 - Unspecified psychosis not due to a substance or known physiological condition Pt Condition on Discharge: Stable Discharge Disposition: Discharge Home Discharge Instructions Diet Instructions: As Tolerated, No Restrictions Activities you can perform: Regular-No Restrictions Discharge Time > 30 minutes Mental Status Examination Appearance: Appropriate Consciousness: Alert Orientation: Person, Place, Date/Time Motor Activity: Normal gait Speech: Unremarkable Language: Adequate Fund of Knowledge: Inadequate Attention and Concentration: Adequate Memory: Impaired Mood: Appropriate Affect: Appropriate Thought Process & Associations: Intact Thought Content: Appropriate Hallucination Type: None Delusion Type: None Suicidal Ideation: No Suicidal Plan: No Suicidal Intention: No Homicidal Ideation: No Homicidal Plan: No Homicidal Intention: No Insight: Adequate Judgment: Adequate Discharge/Advance Care Plan Health Problems: (1) Unspecified psychosis Goals to promote your health * To prevent worsening of your condition and complications * To maintain your health at the optimal level Directions to meet your goals Take your medications as prescribed Follow your dietary instruction Follow activity as directed Keep your appointments as scheduled Take your immunizations and boosters as scheduled If your symptoms worsen call your PCP, if no PCP go to Urgent Care Center or Emergency Room For 28/04 questions related to your inpatient stay or results of tests pending at discharge, please contact Dr. Elvin Butcher at Smoking is Dangerous to Your Health. Avoid second hand smoking Elvin Butcher MD Jan 21, 2018 07:45
[2018-01-21] MEDS: REMOVE OLD PATCH T-DERMAL SCH (08:45)
[2018-01-21] MEDS: ARIPiprazole 5 MG TAB PO SCH (08:45)
[2018-01-21] MEDS: NICOTINE 21 MG/24 HR PATCH T-DERMAL SCH (08:46)
--- NOTE | 2018-01-21 10:14 | PD.TTN ---
Patient Problems 1. Discharge planning 2. Medication compliance 3. Knowledge deficit 4. Lack of coping skills Progress Toward Goals Provider Present: Dr. Chantale Butcher Provider Input: Patient is doing well, will be discharged today. Nurse(s) Input: Patient's nurse reports patient is pleasant, medication compliant, calm. Attends groups Psychiatric Counselors Present: Carmen Kovacs, [facility] Psych Therapist Input: Patient presented pleasant, cooperative, affect appropriate. Patient made good eye contact. Patient's speech was clear and organized. Patient denies suicidal and homicidal ideation. Group Spec/RT/OT/REYNA Present: ISAMAR Tolbert Group Spec/RT/OT/REYNA Input: Patient attends the group activities with good participation. Carmen Kovacs [facility] Jan 21, 2018 10:14
== END 2018-01-21 11:35 | disposition home or self-care (01) | DRG 885 ==
LOC: NEPD 01:01 → NEDA 08:59 → H270 11:55
PROVIDERS: ADMIT Student in an Organized Health Care Education/Training Program; ATTEND Student in an Organized Health Care Education/Training Program
DX: F29 Unspecified psychosis not due to a substance or known physiological condition (principal); Z78.1 Physical restraint status; F90.9 Attention-deficit hyperactivity disorder, unspecified type; E87.6 Hypokalemia; F10.10 Alcohol abuse, uncomplicated; F12.90 Cannabis use, unspecified, uncomplicated; Y90.5 Blood alcohol level of 100-119 mg/100 ml; Z81.8 Family history of other mental and behavioral disorders
CPT/HCPCS: 80048; 80053; 80061; 80307; 83036; 84443; 85025; 96372; J1200; J1630; J2060